=== PATIENT | female | born 1985 | race Caucasian/White ===

== ENCOUNTER 2016-11-22 20:50 | Emergency (ER) | payer SELFPAY ==
[~2016-11-22] VITALS: Ht 144.8 cm; Wt 53.6 kg
[2016-11-22] MEDS ORDERED: IBUPROFEN 600 MG TABLET PO ONE (21:30)
[2016-11-22] MEDS ORDERED: HYDROCODONE/ACETAMINOPHEN 5-325 MG TABLET PO ONE (21:30)
[2016-11-22 22:21] VITALS: BP 132/77
== END 2016-11-22 22:27 | disposition home or self-care (01) ==
LOC: EMS 20:51
DX: S80.11XA Contusion of right lower leg, initial encounter (principal); S80.12XA Contusion of left lower leg, initial encounter; V43.52XA Car driver injured in collision with other type car in traffic accident, initial encounter; Y93.89 Activity, other specified; Y92.89 Other specified places as the place of occurrence of the external cause; Y99.8 Other external cause status
CPT/HCPCS: 81025; 99283